=== PATIENT | male | born 1980 | race African-American/Black ===

== ENCOUNTER 2022-10-22 16:19 | Emergency (ER) | payer MEDICARE ==
[~2022-10-22] VITALS: Ht 180.3 cm; Wt 77.1 kg
[2022-10-22 17:05] LABS: EOSINOPHILS # (AUTO) 0.3 (0.0-0.4); EOSINOPHILS % 6.7 % (0.0-6.0); HEMATOCRIT 28.2 % (38.2-49.6); HEMOGLOBIN 8.8 g/dL (14.0-18.0); LYMPHOCYTES # (AUTO) 1.4 (1.0-3.2); MEAN CORPUSCULAR HEMOGLOBIN 27.7 pg (28-32); MEAN CORPUSCULAR HGB CONC 31.2 g/dL (31-35); MEAN CORPUSCULAR VOLUME 88.7 fL (81-99); MONOCYTES # (AUTO) 0.5 (0.2-0.8); MONOCYTES % 12.6 % (4.4-11.3); NEUTROPHILS # (AUTO) 1.9 (2.1-6.9); NEUTROPHILS % 45.5 % (38.7-80.0); PLATELET COUNT 106 x10e3/uL (140-360); RED BLOOD COUNT 3.18 x10e6/uL (4.3-5.7); RED CELL DISTRIBUTION WIDTH 15.2 % (11.7-14.4)
[2022-10-22 17:23] LABS: ALBUMIN 3.2 g/dL (3.5-5.0); ALBUMIN/GLOBULIN RATIO 0.8 (0.8-2.0); ANION GAP 19.5 mmol/L (8-16); CALCIUM 9.3 mg/dL (8.4-10.2); CREATININE, SERUM 8.2 mg/dL (0.72-1.25); POTASSIUM 4.5 mmol/L (3.5-5.1)
[2022-10-22 17:29] LABS: CREATINE KINASE MB 2.1 ng/mL (0-5.0)
[2022-10-22 19:38] VITALS: BP 121/70; PULSE 78; RESP 19; TEMP 98.8; O2SAT 98
== END 2022-10-22 21:10 | disposition home or self-care (01) ==
LOC: ER 16:35
DX: R06.02 Shortness of breath (principal); R07.9 Chest pain, unspecified; I12.0 Hypertensive chronic kidney disease with stage 5 chronic kidney disease or end stage renal disease; E11.22 Type 2 diabetes mellitus with diabetic chronic kidney disease; N18.6 End stage renal disease; Z99.2 Dependence on renal dialysis; D64.9 Anemia, unspecified; K21.9 Gastro-esophageal reflux disease without esophagitis; R94.31 Abnormal electrocardiogram [ECG] [EKG]
CPT/HCPCS: 36415; 71045; 80053; 82550; 82553; 83735; 84484; 85025; 93005; 99284

== ENCOUNTER 2023-03-28 17:49 | Emergency (ER) | payer MEDICARE ==
[~2023-03-28] VITALS: Ht 180.3 cm; Wt 73.5 kg
[2023-03-28] MEDS ORDERED: ONDANSETRON HCL INJ 2MG/ML 2ML 2 MG/ML VIAL IV STA (18:36)
[2023-03-28 18:48] LABS: BASOPHILS # (AUTO) 0.1 (0.0-0.1); BASOPHILS % 1.6 % (0.0-1.0); EOSINOPHILS # (AUTO) 0.3 (0.0-0.4); EOSINOPHILS % 7.1 % (0.0-6.0); HEMATOCRIT 31.3 % (38.2-49.6); LYMPHOCYTES # (AUTO) 1.2 (1.0-3.2); MEAN CORPUSCULAR HEMOGLOBIN 28.9 pg (28-32); MEAN CORPUSCULAR HGB CONC 31.9 g/dL (31-35); MEAN CORPUSCULAR VOLUME 90.5 fL (81-99); MONOCYTES # (AUTO) 0.7 (0.2-0.8); MONOCYTES % 14.8 % (4.4-11.3); NEUTROPHILS # (AUTO) 2.1 (2.1-6.9); NEUTROPHILS % 48.3 % (38.7-80.0); PLATELET COUNT 129 x10e3/uL (140-360); RED BLOOD COUNT 3.46 x10e6/uL (4.3-5.7); RED CELL DISTRIBUTION WIDTH 18.6 % (11.7-14.4); WHITE BLOOD COUNT 4.39 x10e3/uL (4.8-10.8)
[2023-03-28 18:57] LABS: ALBUMIN 3.5 g/dL (3.5-5.0); ALBUMIN/GLOBULIN RATIO 0.9 (0.8-2.0); ANION GAP 19.2 mmol/L (8-16); CALCIUM 10.2 mg/dL (8.4-10.2); CREATININE, SERUM 7.24 mg/dL (0.72-1.25); POTASSIUM 3.2 mmol/L (3.5-5.1)
[2023-03-28] MEDS ORDERED: PANTOPRAZOLE SO40 MG PO (19:53)
[2023-03-28] MEDS ORDERED: ONDANSETRON ODT4 MG SL (19:53)
[2023-03-28 20:08] VITALS: BP 174/93; PULSE 95; RESP 21; TEMP 98.2; O2SAT 93
== END 2023-03-28 20:10 | disposition home or self-care (01) ==
LOC: ER 18:24
DX: R11.0 Nausea (principal); R07.9 Chest pain, unspecified; K29.70 Gastritis, unspecified, without bleeding; R10.13 Epigastric pain; I12.0 Hypertensive chronic kidney disease with stage 5 chronic kidney disease or end stage renal disease; E13.22 Other specified diabetes mellitus with diabetic chronic kidney disease; E16.2 Hypoglycemia, unspecified; N18.6 End stage renal disease; D64.9 Anemia, unspecified; K21.9 Gastro-esophageal reflux disease without esophagitis; Z89.512 Acquired absence of left leg below knee
CPT/HCPCS: 36415; 71045; 80053; 84484; 85025; 93005; 99284; C9113

== ENCOUNTER 2023-05-07 15:04 | Emergency (ER) | payer MEDICARE ==
[~2023-05-07] VITALS: Ht 180.3 cm; Wt 75.7 kg
[~2023-05-07 15:04] MED LIST: ONDANSETRON ODT4 MG SL; PANTOPRAZOLE SO40 MG PO
[2023-05-07 16:01] LABS: BASOPHILS % 0.5 % (0.0-1.0); EOSINOPHILS # (AUTO) 0.1 (0.0-0.4); EOSINOPHILS % 1.5 % (0.0-6.0); HEMATOCRIT 28.9 % (38.2-49.6); HEMOGLOBIN 9.2 g/dL (14.0-18.0); LYMPHOCYTES # (AUTO) 0.9 (1.0-3.2); LYMPHOCYTES % 12.9 % (18.0-39.1); MEAN CORPUSCULAR HGB CONC 31.8 g/dL (31-35); MEAN CORPUSCULAR VOLUME 87.8 fL (81-99); MONOCYTES # (AUTO) 0.6 (0.2-0.8); MONOCYTES % 9.7 % (4.4-11.3); NEUTROPHILS # (AUTO) 4.9 (2.1-6.9); NEUTROPHILS % 74.5 % (38.7-80.0); PLATELET COUNT 235 x10e3/uL (140-360); RED BLOOD COUNT 3.29 x10e6/uL (4.3-5.7); RED CELL DISTRIBUTION WIDTH 18.8 % (11.7-14.4); WHITE BLOOD COUNT 6.61 x10e3/uL (4.8-10.8)
[2023-05-07 16:15] LABS: ALBUMIN 2.5 g/dL (3.5-5.0); ALBUMIN/GLOBULIN RATIO 0.5 (0.8-2.0); ANION GAP 18.1 mmol/L (8-16); BILIRUBIN,TOTAL 0.5 mg/dL (0.2-1.2); CALCIUM 8.7 mg/dL (8.4-10.2); CREATININE, SERUM 3.83 mg/dL (0.72-1.25); TOTAL PROTEIN 7.2 g/dL (6.5-8.1)
[2023-05-07 16:18] LABS: POTASSIUM 3.1 mmol/L (3.5-5.1)
[2023-05-07] MEDS ORDERED: Vancomycin IV 1 GM in SODIUM CHLORIDE 0.9% 250ML 250 ML IV ONE (16:30)
[2023-05-07 19:54] VITALS: O2SAT 98
[2023-05-07] MEDS ORDERED: GENTAMICIN 120MG/NS 100ML 100 ML IV ONE (20:00)
== END 2023-05-07 20:15 | disposition home or self-care (01) ==
LOC: ER 15:51
DX: R53.81 Other malaise (principal); I12.0 Hypertensive chronic kidney disease with stage 5 chronic kidney disease or end stage renal disease; E11.22 Type 2 diabetes mellitus with diabetic chronic kidney disease; N18.6 End stage renal disease; Z99.2 Dependence on renal dialysis; D64.9 Anemia, unspecified; K21.9 Gastro-esophageal reflux disease without esophagitis; Z89.512 Acquired absence of left leg below knee; Z11.52 Encounter for screening for COVID-19; Z94.0 Kidney transplant status; Z94.83 Pancreas transplant status
CPT/HCPCS: 36415; 71045; 80053; 83735; 85025; 87040; 87400; 99283; J1580; J3370; J7050; U0002